=== PATIENT | female | born 1950 | race Caucasian/White ===

== ENCOUNTER → 2017-02-23 | Outpatient (CLI) | payer OTHER, BC | LOC: FIMAGING 12:31 | PROVIDERS: ATTEND Internal Medicine | DX: Z12.31 Encounter for screening mammogram for malignant neoplasm of breast (principal) | CPT/HCPCS: G0202 ==

== ENCOUNTER 2018-08-18 09:09 | Day surgery (SDC) | payer OTHER, BC ==
[2018-08-18] MEDS ORDERED: LR 1,000 ML IV ONE (09:15)
[2018-08-18] MEDS ORDERED: BUPIVACAINE/EPI 0.25% 30 ML SDV ONE (09:22)
[2018-08-18] MEDS ORDERED: BUPIVACAINE 0.25% 30 ML SDV ONE (09:22)
[2018-08-18] MEDS ORDERED: BACITRACIN 50,000 UNITS/10 ML SYR IRR ONE (09:23)
--- NOTE | 2018-08-18 09:51 | PDANEPAE ---
ANE History of Present Illness L great toe arthroplasty ANE Past Medical History - Cardiovascular History Hx Hypertension: No Hx Arrhythmias: No Hx Chest Pain: No Hx Coronary Artery / Peripheral Vascular Disease: No Hx CHF / Valvular Disease: No Hx Palpitations: No - Pulmonary History Hx COPD: No Hx Asthma/Reactive Airway Disease: No Hx Recent Upper Respiratory Infection: No Hx Oxygen in Use at Home: No Hx Sleep Apnea: No Sleep Apnea Screening Result - Last Documented: Negative - Neurologic History Hx Cerebrovascular Accident: No Hx Seizures: No Hx Dementia: No - Endocrine History Hx Diabetes: No Hypothyroid: No Hyperthyroid: No Obesity: no - Renal History Hx Renal Disorders: No - Liver History Hx Hepatic Disorders: No - Neurological & Psychiatric Hx Hx Neurological and Psychiatric Disorders: No - Cancer History Hx Cancer: No - Congenital Disorder History Hx Congenital Disorders: No - GI History GERD: no Hx Gastrointestinal Disorders: No - Other Health History Other Health History: NEG - Chronic Pain History Chronic Pain: Yes (FOOT PAIN L) - Surgical History Prior Surgeries: C SECTION. FOOT L SURGERY. tonsillectomy ANE Review of Systems Review of Systems: - Exercise capacity METS (RN): 5 METS ANE Patient History - Allergies Allergies/Adverse Reactions: Penicillins Allergy (Verified 08/03/18 12:37) Vomiting Sulfa (Sulfonamide Antibiotics) Allergy (Verified 08/03/18 12:37) Rash - Home Medications Home Medications: Herbals/Supplements -Info Only 08/03/18 [Last Taken 1 Week Ago ~08/11/18] - NPO status NPO Since - Liquids (Date): 08/18/18 NPO Since - Liquids (Time): 07:00 NPO Since - Solids (Date): 08/18/18 NPO Since - Solids (Time): 07:00 - Anes Hx Anes Hx: no prior problems - Smoking Hx Smoking Status: Never smoked Marijuana use: No - Alcohol Use Alcohol Use: Other (1 drink/month) - Family Anes Hx Family Anes Hx: none Family Hx Anesthesia Complications: NEG ANE Labs/Vital Signs - Vital Signs Height: 157.48 cm Weight: 60.328 kg ANE Physical Exam - Airway Neck exam: FROM Mallampati Score: Class 2 - Pulmonary Pulmonary: clear to auscultation - Cardiovascular Cardiovascular: regular rate and rhythym - ASA Status ASA Status: I ANE Anesthesia Plan Anesthesia Plan: GA with mask
[2018-08-18] MEDS ORDERED: MIDAZOLAM 2 MG/2 ML VIAL IVP ONE (09:55)
[2018-08-18] MEDS ORDERED: fentaNYL 100 MCG/2 ML INJ ONE (09:59)
[2018-08-18] MEDS ORDERED: ceFAZolin 2 GM/DEXTROSE 100 ML IV ONE (10:00)
[2018-08-18] MEDS ORDERED: PROPOFOL 200 MG/20 ML VIAL ONE ×4 (10:00→12:19)
--- NOTE | 2018-08-18 10:06 | PDHPUP ---
History & Physical Update H&P update statement: This history and physical update is based on an assessment of the patient which was completed after admission or registration (within 24 hours), but prior to the surgery/procedure. H&P update: H&P reviewed & patient examined, no change in patient's condition since H&P completed
[2018-08-18] MEDS ORDERED: PHENYLEPHRINE HCL 100 MCG/ML SYR ONE (10:53)
[2018-08-18] MEDS ORDERED: oxyCODONE IR 5 MG TAB PO PRN (12:41)
[2018-08-18] MEDS ORDERED: NALOXONE HCL 0.4 MG/ML INJ IVP PRN (12:41)
[2018-08-18] MEDS ORDERED: DEXAMETHASONE 4 MG/ML VIAL IVP PRN (12:41)
[2018-08-18] MEDS ORDERED: fentaNYL 100 MCG/2 ML INJ IVP PRN (12:41)
--- NOTE | 2018-08-18 12:49 | POSTOPPROG ---
Post Op Note Date of Operation: 08/18/18 Surgeon: Abdullahi Reilly Trim Die Maker: none Anesthesiologist: odell Anesthesia: IV Sedation Pre-op Diagnosis: hallux rigidus, hammertoe, plantar plate tear left Post-op Diagnosis: same Indication: pain Procedure: implant arthroplasty, HT repair, PP repair left Findings: none Inf/Abcess present in the surg proc area at time of surgery?: No Depth: Deep Incisional (Fascial) EBL: Minimal Total fluids administered: 30cc 9/1 .25% marcaine plain and with epi Complications: none Drains: Other (none)
[2018-08-18 14:31] VITALS: BP 101/54
--- NOTE | 2018-08-20 06:43 | GOP ---
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 ANESTHESIA: Local with MAC. ANESTHESIOLOGIST: Dr. Up. PREOPERATIVE DIAGNOSIS: 1. Hallux rigidus, left. 2. Hammertoe, left 2nd digit. 3. Capsulitis, left 2nd metatarsal. POSTOPERATIVE DIAGNOSIS: 1. Hallux rigidus, left. 2. Hammertoe, left 2nd digit. 3. Capsulitis, left 2nd metatarsal. 4. Plantar plate tear, left 2nd. PROCEDURE PERFORMED: 1. Left 1st metatarsophalangeal joint implant arthroplasty. 2. 2nd metatarsal osteotomy, left. 3. Hammertoe repair by proximal interphalangeal joint fusion, left 2nd. 4. Plantar plate repair, left 2nd metatarsophalangeal joint. 5. Amniotic grafting, left 1st and 2nd metatarsophalangeal joints. FINDINGS: ESTIMATED BLOOD LOSS: Minimal. DESCRIPTION OF PROCEDURE: Patient presented to [facility], was cleared for the intende d procedure. Patient was taken the operating, placed on the table in supine position. IV sedation w as started per the anesthesia department. Foot was anesthetized in an infiltrative nerve block fashi on. Foot was prepped, scrubbed, and draped in usual sterile fashion. Following exsanguination by el evation and Esmarch bandage, pneumatic ankle tourniquet was inflated to 225 mmHg. At this time, atte ntion was directed dorsal aspect of the left 1st ray where the obvious previous incision was noted ov er the level of the joint. This incision was, again, incised over the joint and carried deep utilizi ng sharp blunt dissection, making sure that all neurovascular structures were identified and retracte d at this time. All superficial bleeders were cauterized. The incision was carried down to the leve l of the joint capsule. At this time, a T-capsulotomy was performed. Capsular tissue was dissected free medially and laterally to allow for adequate exposure to the metatarsophalangeal joint. Attempt ed range of motion of the joint, at this time, showed less than 10 degrees of motion. There was cons iderable bone spur formation having grown across the top of the joint to the point where the joint morris rface was not visible. Utilizing a sagittal saw, the dorsal exostosis were removed to allow for visu alization of the joint. At this time, a McGlamry elevator was introduced, and the sesamoidal apparat us was freed up. Upon completion of this, a guidewire for the impending implant arthroplasty was joselito kenney from distal to proximal in the center of the metatarsal head to act as a guide for the procedure. Its position was confirmed utilizing C-arm fluoroscopy. It had been decided that total implant art hroplasty was necessary given the severe degenerative arthritic changes on both sides of the joint. After the guidewire was placed appropriately, the area was drilled and tapped appropriately before th e screw was placed into the metatarsal neck. The area was then reamed appropriately for the 4.5 x 2. 5 arthro surface implant. The area was flushed with copious amounts of sterile saline and the trial Sizer was placed into the site. The redundant bone circumferentially around the site was then remove d with sagittal saw and smoothed with a high speed bur. The area was again flushed with sterile sali ne. At this point, considerable improvement in the range of motion was appreciable, but still less t bautista the desired 70 degrees. It was decided that the total implant arthroplasty would be necessary. Another guidewire was driven from proximal to distal into the base of the proximal phalanx, which aga in was confirmed by C-arm fluoroscopy for adequate alignment. The area was again drilled and tapped appropriately before the phalangeal base plate was screwed into position appropriately. Any redundan t exostosis again was removed around the site before the trial implant was placed onto this side. Up on completion of this, we had approximately 90 degrees of range of motion at this time. The area was again flushed with copious amounts of sterile saline before the trial sizers were removed, and the p ermanent implant arthroplasty was placed into the area. Upon securing them appropriately, excellent range of motion was noted. The areas were flushed with copious amounts of sterile saline, at this ti me, before capsule was closed with 2-0 and 3-0 Vicryl. It was decided, at this point, given the prev ious surgery and scarring associated with the area, that an amniotic graft would be placed on the are a to reduce the scar tissue. The amniotic membrane graft is an FDA approved allograft that is indica thierry for soft tissue defects and micro trauma. Upon completion of this, the subcutaneous closure was obtained with 5-0 Vicryl followed by skin closure with 5-0 nylon. Upon completion of this, attention was redirected to the 2nd digit where the obvious hammertoe and medial deviation of the digit was ap preciable. A curvilinear incision was started in the 2nd intermetatarsal space, curved over the meta tarsophalangeal joint, and carried distally over the level of the proximal interphalangeal joint. Th e incision was again carried deep utilizing sharp and blunt dissection, making sure that all neurovas cular structures were identified and retracted at this time. All superficial bleeders were cauterize d. The incision was carried down deep to the level of the joint capsules at both metatarsophalangeal and proximal interphalangeal joints. The proximal interphalangeal joint then had the extensor appar atus sharply transected at the level of the joint and dissected free proximally to allow for adequate exposure to the head of the proximal phalanx and base of the intermediate phalanx. The head of the proximal phalanx was then resected with a sagittal saw before the base was removed with a high-speed bur back to healthy bleeding bone. The area was again flushed with copious amounts of sterile saline . The area was drilled appropriately before being broached and measured. It was ultimately decided that a hammer lock 2 medium 0 degree implant would be utilized. This was not placed into the site ye t though at this time. Evaluation of the plantar plate, at this point, showed a substantial tear nathan t would need to be fixated. It was decided that a 2nd metatarsal osteotomy would be performed. The osteotomy was performed running from dorsal distal to plantar proximal. The metatarsal head was shif thierry proximally and penned temporarily with K-wire fixation. Visualization showed a complete rupture of the plantar plate from the base of the proximal phalanx. It was decided that repair would be nece ssary. The Arthrex mini scorpion was then utilized to tag both the distal medial and lateral portion s of the plantar plate. Two guidewires were then utilized through the base of the proximal phalanx i n a crossed X fashion, and the suture passers were placed through the bone so that the suture could b e pulled to the dorsal aspect of the proximal phalanx. Upon completion of this, the base of the prox imal phalanx had a bone rasp utilized to get down to healthy bleeding bone and allow for reattachment of the plantar plate. At this point, the area was again flushed with copious amounts of sterile antonietta ine. At this point, the hammer lock 2 implant was placed appropriately into the proximal interphalan geal fusion site and good compression was obtained, which was confirmed by C-arm fluoroscopy. The K- wire fixation in the metatarsal head was released. The metatarsal was moved back into the appropriat e alignment, making sure to leave it longer than the 3rd, but shorter than the 1st. It was again hel d temporarily with K-wire fixation before the Arthrex 2.0 snap-off screws were placed across the area . Good compression was obtained, and the temporary K-wire was removed. Upon completion of this, the toe was held in a slightly plantar flexed position while the plantar plate was secured by suturing o n the dorsal aspect of the proximal phalanx. Upon completion of this, C-arm fluoroscopy showed an ex cellent alignment to both metatarsophalangeal joints. The area was again flushed with copious amount s of sterile saline before the extensor apparatus was reapproximated with 3-0 Vicryl and the capsule was closed with 2-0 and 3-0 Vicryl. The entire incision was closed with 5-0 Vicryl and 5-0 nylon aft er the other half of the amniotic graft had been placed in the incision site. Both areas were dresse d with Betadine-soaked Adaptics, 4x4s, Abdullahi, and Coban. The patient was taken to recovery room with vital signs stable and vascular supply intact digits 1 through 5 bilaterally after the pneumatic ank le tourniquet had been released for a total tourniquet time of 119 minutes. PATHOLOGY: None. HEMOSTASIS: PAT at 225 mmHg by 119 minutes. MATERIALS: 1. Arthro surface 4.5 x 2.5 total implant arthroplasty. 2. Arthrex 2.0 snap-off screws by 11 and 13 mm. 3. Hammer lock 2 medium 0 degree implant. 4. A 3 x 5 amniotic tissue graft. INJECTABLES: 30 cc 9:1 ratio 0.25% Marcaine plain, 0.25% Marcaine with epi preoperatively. COMPLICATIONS: None. /[id number]/MODL
== END 2018-08-18 14:25 | disposition home or self-care (01) ==
LOC: FSGY 09:09
PROVIDERS: ATTEND Podiatrist Primary Podiatric Medicine
PROC: 3E0U0GB Introduction of Recombinant Bone Morphogenetic Protein into Joints, Open Approach (ICD-10-PCS; principal; 2018-08-18 10:30)
PROC: 0SRN0JZ Replacement of Left Metatarsal-Phalangeal Joint with Synthetic Substitute, Open Approach (ICD-10-PCS; principal; 2018-08-18 10:30)
PROC: 0SQN0ZZ Repair Left Metatarsal-Phalangeal Joint, Open Approach (ICD-10-PCS; principal; 2018-08-18 10:30)
PROC: 0SGQ04Z Fusion of Left Toe Phalangeal Joint with Internal Fixation Device, Open Approach (ICD-10-PCS; principal; 2018-08-18 10:30)
DX: M20.22 Hallux rigidus, left foot (principal); M20.42 Other hammer toe(s) (acquired), left foot; M77.52 Other enthesopathy of left foot and ankle; M79.9 Soft tissue disorder, unspecified
CPT/HCPCS: C1713; C9399; J0690; J2250; J2370; J2704; J3010